=== PATIENT | male | born 1995 | race Caucasian/White ===

== ENCOUNTER 2022-09-02 02:22 | Emergency (ER) | payer BC ==
[~2022-09-02] VITALS: Ht 175.3 cm; Wt 77.1 kg
[2022-09-02 02:26] VITALS: BP 153/99
[2022-09-02] MEDS ORDERED: predniSONE 20 MG TAB PO ONE (02:45)
[2022-09-02] MEDS ORDERED: ALBUTEROL SULFATE/IPRATROPIU 3 ML SOL IH ONE ×2 (02:45)
--- NOTE | 2022-09-02 03:07 | NUR ---
Respiratory Therapist at bedside for respiratory intervention.
--- NOTE | 2022-09-02 03:20 | NUR ---
ER physician assessing patient. Patient is A/Ox4, chest rise and fall symmetrical, no c/o pain or s/s of distress.
[2022-09-02] MEDS ORDERED: ALBU0.0912 IH (03:35)
[2022-09-02] MEDS ORDERED: PRED20TA5 PO (03:35)
[2022-09-02 03:48] VITALS: BP 127/85
== END 2022-09-02 03:48 | disposition home or self-care (01) ==
LOC: MED 02:22
DX: J45.901 Unspecified asthma with (acute) exacerbation (principal); R06.2 Wheezing; R05.9 Cough, unspecified; Z79.899 Other long term (current) drug therapy
CPT/HCPCS: 94640; 99283; J7512

== ENCOUNTER 2022-09-30 18:30 | Emergency (ER) | payer BC ==
[~2022-09-30] VITALS: Ht 175.3 cm; Wt 73.9 kg
[~2022-09-30 18:30] MED LIST: ALBU0.0912 IH; PRED20TA5 PO
[2022-09-30 19:01] VITALS: BP 119/75
--- NOTE | 2022-09-30 19:07 | NUR ---
BIB SELF C/O COUGH X 2 WEEKS. PARTNER HAS PNEUMONIA TODAY. PMH: ASTHMA
[2022-09-30] MEDS ORDERED: DEXAMETHASONE 10 MG/ML VIAL IM ONE (19:45)
[2022-09-30] MEDS ORDERED: ALBUTEROL SULFATE/IPRATROPIU 3 ML SOL IH ONE (19:45)
--- NOTE | 2022-09-30 20:01 | NUR ---
PT TO BED 4
[2022-09-30 20:16] LABS: BASOPHILS # (AUTO) 0.1 K/uL (0.00-0.22); BASOPHILS % (AUTO) 0.7 % (0.0-2.0); EOSINOPHILS # (AUTO) 1.2 K/uL (0-0.4); EOSINOPHILS % (AUTO) 15.5 % (0.0-4.0); HEMATOCRIT 45.4 % (36-52); HEMOGLOBIN 15.6 g/dL (12.0-18.0); LYMPHOCYTES # (AUTO) 2.3 K/uL (2.0-11.5); MEAN CORPUSCULAR HEMOGLOBIN 30 pg (27-31); MEAN CORPUSCULAR HGB CONC 34 g/dL (33-37); MEAN CORPUSCULAR VOLUME 86.9 fL (80-94); MONOCYTES # (AUTO) 0.8 K/uL (0.8-1.0); MONOCYTES % (AUTO) 9.8 % (1.7-9.3); NEUTROPHILS # (AUTO) 3.6 K/uL (1.8-7.7); PLATELET COUNT (AUTO) 241 K/uL (140-450); RED BLOOD CELL COUNT(AUTO) 5.23 MIL/uL (4.20-6.10); RED CELL DISTRIBUTION WIDTH 13.3 % (11.6-13.7)
[2022-09-30 20:31] LABS: ANION GAP 10.5 (8-16); CARBON DIOXIDE 28.4 mmol/L (21-32); POTASSIUM 3.9 mmol/L (3.5-5.1)
--- NOTE | 2022-09-30 20:31 | NUR ---
27YR OLD MALE BIB SELF C/O ASTHMA HX OF . PT STATES HE HAS BEEN WHEEZING AT NIGHT. SP02 99% RA. HOB ELEVATED. RESP EVEN AND UNLABORED. RT AT BEDSIDE NEB TX. SKIN WARM AND DRY. DENIES FEVER CP OR SOB . BED AT LOWEST POSITION SIDE RAILS UP X2 NKDA ASTHMA
[2022-09-30] MEDS ORDERED: AZIT250T4 PO (20:44)
[2022-09-30] MEDS ORDERED: ALBU0.0912 IH (20:44)
[2022-09-30] MEDS ORDERED: PRED20TA5 PO (20:44)
--- NOTE | 2022-09-30 20:48 | NUR ---
COVID AND FLU SWABS COLLECTED AND SENT LAB
[2022-09-30 21:00] VITALS: BP 100/72
--- NOTE | 2022-09-30 21:00 | NUR ---
Patient discharged with v/s stable. Written and verbal after care instructions given and explained. Patient verbalized understanding. Ambulatory with steady gait. All questions addressed prior to discharge. Advised to follow up with PMD.
== END 2022-09-30 21:00 | disposition home or self-care (01) ==
LOC: MED 18:30
DX: J40 Bronchitis, not specified as acute or chronic (principal); Z20.822 Contact with and (suspected) exposure to COVID-19; J45.909 Unspecified asthma, uncomplicated; Z79.899 Other long term (current) drug therapy
CPT/HCPCS: 36415; 71046; 80048; 85025; 87635; 94640; 96372; 99284; C9803; J1100